=== PATIENT | male | born 1975 | race Two or more races ===

== ENCOUNTER → 2024-03-04 06:23 | Day surgery (SDC) | payer OTHER, SELFPAY | LOC: GI 06:23 | PROVIDERS: ATTENDING PHYSICIAN Internal Medicine Gastroenterology; FAMILY PHYSICIAN Family Medicine | DX: Z12.11 Encounter for screening for malignant neoplasm of colon (principal); K63.89 Other specified diseases of intestine; K64.8 Other hemorrhoids; K51.00 Ulcerative (chronic) pancolitis without complications; K63.5 Polyp of colon; K29.50 Unspecified chronic gastritis without bleeding; D12.4 Benign neoplasm of descending colon; Z86.0101 Personal history of adenomatous and serrated colon polyps | CPT/HCPCS: 45385; 45380; 88305 ==